=== PATIENT | male | born 1960 | race African-American/Black ===

== ENCOUNTER → 2023-06-16 | Emergency (ER) | payer OTHER ==
[~2023-06-16] VITALS: Ht 172.7 cm; Wt 115.2 kg
[~2023-06-16] MED LIST: AZOR 10-20 MG1 EACH; DEXAMETHASONE SODIUM PHOSPHATE 4 MG/ML VIAL IM STA; DIPHENHYDRAMINE HCL 50 MG/ML VIAL 1ML IM STA; KETOROLAC TROMETHAMINE 30 MG VIAL IM STA
== END | disposition home or self-care (01) ==
LOC: ER 10:43
DX: S62.102A Fracture of unspecified carpal bone, left wrist, initial encounter for closed fracture (principal); W19.XXXA Unspecified fall, initial encounter; Y93.9 Activity, unspecified; Y92.89 Other specified places as the place of occurrence of the external cause; Y99.9 Unspecified external cause status; T78.40XA Allergy, unspecified, initial encounter; X58.XXXA Exposure to other specified factors, initial encounter; Z91.040 Latex allergy status

== ENCOUNTER 2024-03-02 12:49 | Outpatient (CLI) | payer OTHER ==
[~2024-03-02 12:49] MED LIST changes: -DEXAMETHASONE SODIUM PHOSPHATE 4 MG/ML VIAL IM STA; -DIPHENHYDRAMINE HCL 50 MG/ML VIAL 1ML IM STA; -KETOROLAC TROMETHAMINE 30 MG VIAL IM STA
== END 2024-03-02 13:00 | disposition home or self-care (01) ==
LOC: MRI 12:49
DX: S83.231A Complex tear of medial meniscus, current injury, right knee, initial encounter (principal)
CPT/HCPCS: 73721